=== PATIENT | female | born 1995 | race Native Hawaiian/Other Pacific Islander ===

== ENCOUNTER 2021-11-28 12:16 | Emergency (ER) | payer BC, OTHER ==
[2021-11-28] MEDS ORDERED: XYLOCAINE 1% HCL 20 ML MDV IJ ONE (12:17)
[2021-11-28] MEDS ORDERED: Rocephin 1000 MG INJ IM ONE (12:33)
[2021-11-28] MEDS ORDERED: Zithromax 250 MG TABLET PO ONE (12:34)
[2021-11-28 12:37] VITALS: BP 138/83
[2021-11-28] MEDS ORDERED: Rocephin 1000 MG INJ ONE (12:47)
[2021-11-28] MEDS ORDERED: Zithromax 250 MG TABLET ONE (12:47)
--- NOTE | 2021-11-28 12:55 | ERPHSYRPT ---
- History of Present Illness Time Seen by Provider: 11/28/21 12:51 Source: patient Patient Subjective Stated Complaint: wellness- needs treated for STD Triage Nursing Assessment: Patient ambulated back to ED and transferred self to bed. Patient A+O X3. Patient's skin pink, warm and dry. Patient states she is 12 weeks and received a phone call from Dr. Enriquez stating she is positive for gonnorhea and will need to be treated. Lab shows patient is positive for go nnohea on 11/27/2021. Patient denies any pain or discomfort or vaginal bleeding. Physician History: Patient states she is 12 weeks and received a phone call from Dr. Enriquez stating she is positive for gonnorhea and will need to be treated. Lab shows patient is positive for gonnohea on 11/27/2021. Patient denies any pain or discomfort or vaginal bleeding. Sexual intercourse history: multiple partners, known exposure to STD, unprotected intercourse Modifying Factors: Improves With: nothing Associated Symptoms: denies symptoms Allergies/Adverse Reactions: No Known Drug Allergies Allergy (Unverified 11/28/21 12:28) Home Medications: No Reportable Medications [No Reported Medications] 11/28/21 [History] Hx Influenza Vaccination/Date Given: No Hx Pneumococcal Vaccination/Date Given: No Travel Risk - International Travel Have you traveled outside of the country in past 3 weeks: No - Coronavirus Screening Are you exhibiting any of the following symptoms?: No Close contact with a COVID-19 positive Pt in past 14-21 Days: No - Vaccine Status Have you recieved a Covid-19 vaccination: Yes [employer] Cashier: Unknown - Vaccination Dates Dates if Unknown: na - Review of Systems Constitutional: No Fever, No Chills Eyes: No Symptoms Ears, Nose, & Throat: No Symptoms Respiratory: No Cough, No Dyspnea Cardiac: No Chest Pain, No Edema, No Syncope Abdominal/Gastrointestinal: No Abdominal Pain, No Nausea, No Vomiting, No Diarrhea Genitourinary Symptoms: No Dysuria Musculoskeletal: No Back Pain, No Neck Pain Skin: No Rash Neurological: No Dizziness, No Focal Weakness, No Sensory Changes Psychological: No Symptoms Endocrine: No Symptoms All Other Systems: Reviewed and Negative - Past Medical History Pertinent Past Medical History: No Neurological History: No Pertinent History ENT History: No Pertinent History Cardiac History: No Pertinent History Respiratory History: No Pertinent History Endocrine Medical History: No Pertinent History Musculoskeletal History: No Pertinent History GI Medical History: No Pertinent History History: No Pertinent History Psycho-Social History: No Pertinent History Female Reproductive Disorders: No Pertinent History - Past Surgical History Past Surgical History: No Neuro Surgical History: No Pertinent History Cardiac: No Pertinent History Respiratory: No Pertinent History Gastrointestinal: No Pertinent History Genitourinary: No Pertinent History Musculoskeletal: No Pertinent History Female Surgical History: No Pertinent History - Social History Smoking Status: Current every day smoker How long have you smoked: years Exposure to second hand smoke: Yes Drug Use: none Patient Lives Alone: Yes - Female History Hx Last Menstrual Period: September 26, 2021 Hx Now: Yes Expected Date of Delivery: 06/07/22 - Nursing Vital Signs Nursing Vital Signs: Initial Vital Signs Temperature 97.9 F 11/28/21 12:32 Pulse Rate 101 H 11/28/21 12:32 Respiratory Rate 19 11/28/21 12:32 Blood Pressure 138/83 11/28/21 12:32 O2 Sat by Pulse Oximetry 100 11/28/21 12:32 Pain Scale Pain Intensity 0 - Physical Exam General Appearance: no apparent distress, alert Eye Exam: PERRL/EOMI, eyes nml inspection Ears, Nose, Throat Exam: normal ENT inspection, TMs normal, pharynx normal, moist mucous membranes Neck Exam: normal inspection, non-tender, supple, full range of motion Respiratory Exam: normal breath sounds, lungs clear, No respiratory distress Cardiovascular Exam: regular rate/rhythm, normal heart sounds, normal peripheral pulses Gastrointestinal/Abdomen Exam: soft, No tenderness, No mass Back Exam: normal inspection, normal range of motion, No CVA tenderness, No vertebral tenderness Extremity Exam: normal inspection, normal range of motion, pelvis stable Neurologic Exam: alert, oriented x 3, cooperative, crew boss II-XII nml as tested, normal mood/affect, sensation nml, No motor deficits Skin Exam: normal color, warm, dry Lymphatic Exam: No adenopathy SpO2: 100 - Course Nursing assessment & vital signs reviewed: Yes Ordered Tests: Medication Summary Discontinued Medications Generic Name Dose Route Start Last Admin Trade Name Freq PRN Reason Stop Dose Admin Azithromycin 1,000 mg 11/28/21 12:34 Azithromycin 250 Mg Tablet PO 11/28/21 12:35 STAT ONE Azithromycin Confirm 11/28/21 12:47 Azithromycin 250 Mg Tablet Administered 11/28/21 12:48 Dose 1,000 mg .ROUTE .STK-MED ONE Ceftriaxone Sodium 1,000 mg 11/28/21 12:33 Ceftriaxone Sodium 1000 Mg Inj Vial IM 11/28/21 12:34 STAT ONE Ceftriaxone Sodium Confirm 11/28/21 12:47 Ceftriaxone Sodium 1000 Mg Inj Vial Administered 11/28/21 12:48 Dose 1,000 mg .ROUTE .STK-MED ONE - Progress Progress: unchanged Progress Note: 11/28/21 12:52 Patient is informed about her diagnosis especially positive swab which was done in the office for Neisseria gonorrhea. Patient is informed that we are going to treat her with 1 g of intramuscular Rocephin as well as 1 g of azithromycin by mouth. She is also advised to follow-up with her HEAD CUSTODIAN doctor in next 2 to 3 days. She is also informed about avoid sex for at least next 4 to 6 weeks as well as use protection and onwards. She is also advised about the complication related to this area gonorrhea and early . Patient understood verbalize instructions. Antibiotics given: Yes Counseled pt/family regarding: lab results, diagnosis, need for follow-up - Departure Departure Disposition: Home Clinical Impression: Gonorrhea affecting in first trimester Condition: Stable Critical Care Time: No Critical Care Time(excluding separately billable procedures): Critical 30-74 mins Referrals: TELMA ENRIQUEZ DO [ACTIVE STAFF] - Follow Up with PCP/3 days Instructions: Gonorrhea (DC), Chlamydia and Gonorrhea, Screening for Sexually Transmitted Infections Additional Instructions: Discharge/Care Plan VÍCTOR CASTRO was seen on 11/28/21 in the Emergency Room. The patient was counseled regarding Diagnosis,Lab results, Imaging studies, need for follow up and when to return to the Emergency Room. Prescriptions given: Discharge Note I have spoken with the patient and/or caregivers. I have explained the patient's condition, diagnosis and treatment plan based on the information available to me at this time. I have answered the patient's and/or caregiver's questions and addressed any concerns. The patient and/or caregivers have as good understanding of the patient's diagnosis, condition and treatment plan as can be expected at this point. The vital signs have been stable. The patient's condition is stable and appropriate for discharge from the emergency department. The patient will pursue further outpatient evaluation with the primary care physician or other designated or consulting physician as outlined in the discharge instructions. The patient and/or caregivers are agreeable to this plan of care and follow-up instructions have been explained in detail. The patient and/or caregivers have received these instruction. The patient/and or caregivers are aware that any significant change in condition or worsening of symptoms should prompt an immediate return to this or the closest emergency department or call 911. VÍCTOR CASTRO was seen on 11/28/21 n the Emergency Room. At that time you were treated for an emergent condition, during your visit Laboratory, Radiology and/or other procedures may have been ordered. It is very important that you follow-up with your Primary Care Physician within the next 24-48 hours to review your Emergency Room visit and the final results of testing that was ordered. Some test results such as Urine Cultures, Blood Cultures, and other cultures if ordered will not be finalized for 24-48 hours. If you do not have a Primary Care Provider please call the medical records department at [phone] to obtain a copy of your results or you may sign into our patient portal to obtain these results by visiting us @ [email or web address] and completing the following steps: 1. Click on the Patient Portal link 2. Click the Patient Self Enrollment Link to complete the enrollment form and entering your 3. Once the enrollment form is completed you will receive an email with a temporary ID and password at the email address you provided. 4. Next choose a user name and password. Your user name must be at least 4 characters long and your password must be at least 4 characters long. 5. Choose a security question from the list and provide your answer to the question. If you already have signed into the Health Portal you may access your Health Care Information 28/03 by the following steps: 1. Login to our website @ [email or web address] 2. Enter your original user name and password. FAQS The [facility] Health Portal is an online tool that contains your Lab Results, Radiology Reports, Visit History, Discharge Instructions and Health Summary Lab and Radiology Results will not be available for 72 hours on the portal. The Portal is a secure site, passwords are encryted and URLs are re-written so they cannot be copied and pasted. You and authorized family members are the only ones who can access your Portal. Also there is a timeout feature that protects your information if you leave the Portal page open. If you have technical difficulty please use the Contact Us link on the page this will allow you to submit any questions you have regarding the Portal or you may contact the Medical Record Department at [phone] ext [phone].
[2021-11-28 13:09] VITALS: PULSE 87; O2SAT 98
== END 2021-11-28 13:09 | disposition home or self-care (01) ==
LOC: ED 12:16
DX: O98.211 Gonorrhea complicating pregnancy, first trimester (principal); A54.9 Gonococcal infection, unspecified; Z3A.12 12 weeks gestation of pregnancy; Z72.0 Tobacco use
CPT/HCPCS: 96372; 99283; 99291; J0696; A9270-GY

== ENCOUNTER 2022-02-13 08:07 | Observation (INO) | payer BC, OTHER ==
[2022-02-13 08:57] VITALS: BP 114/66; PULSE 103; O2SAT 100
[2022-02-13 10:33] LABS: Bacteria FEW /HPF (NEGATIVE); Epithelial Cells RARE /HPF (FEW); Mucus MODERATE /HPF (NEGATIVE); WBC >100 /HPF (0-5)
[2022-02-13 10:39] LABS: Appearance CLEAR (CLEAR); Bilirubin NEGATIVE (NEGATIVE); Glucose 250 mg/dL (NEGATIVE); Ketones NEGATIVE (NEGATIVE); RBC TRACE-INTACT Ery/ul (0-5); Specific Gravity 1.025 (1.005-1.025)
[2022-02-13 10:40] LABS: Nitrite NEGATIVE (NEGATIVE); Protein,Urine Dip 100 (Negative); Urine Cultured Indicated? YES; Urobilinogen 1 mg/dL (0-1)
[2022-02-13 10:43] LABS: Dipstick done @ ? MAIN LAB
[2022-02-13 10:46] LABS: Barbiturate,Urine NEGATIVE (NEGATIVE); Benzodiazepine,Urine NEGATIVE (NEGATIVE); Cocaine,Urine NEGATIVE (NEGATIVE); Methadone,Urine NEGATIVE (NEGATIVE); Opiate,Urine NEGATIVE (NEGATIVE); PCP,Urine NEGATIVE (NEGATIVE); THC,Urine NEGATIVE (NEGATIVE)
[2022-02-13] MEDS ORDERED: Lactated Ringers 1,000 ML IV ONE (10:52)
[2022-02-13] MEDS ORDERED: ROCEPHIN 2 Gm-D5w 50ML BAG** 2 G/50 ML IVPB IV SCH (11:00)
[2022-02-13] MEDS ORDERED: Celestone Soluspan 6MG/ML IM ONE (11:16)
[2022-02-13] MEDS ORDERED: Lactated Ringers 1,000 ML IV SCH (11:30)
[2022-02-13] MEDS ORDERED: Magnesium Sulfate 40 Gm/1000 Ml H2O Premix*** 1,000 ML IV SCH (11:30)
[2022-02-13 11:39] LABS: Hematocrit 34.4 % (35-47); Hemoglobin 11.4 g/dL (12.0-16.0); Mean Cell Volume 85.6 fL (78-100); Mean Corpuscular Hemoglobin 28.4 pg (26-32); Mean Corpuscular Hgb Concent. 33.1 g/dL (32-36); Mean Platelet Volume 10.2 fL (7.5-11.0); Platelet Count 255 x10^3/uL (150-450); Red Blood Count 4.02 x10^6/uL (4.1-5.4); White Blood Count 24.2 x10^3/uL (4.0-10.5)
[2022-02-13 11:49] LABS: ALBUMIN 3.4 g/dL (3.5-5.0); ALKALINE PHOSPHATASE 115 U/L (38-126); ANION GAP 12.7 MEQ/L (5-15); BLOOD UREA NITROGEN 7 mg/dL (7-17); CHLORIDE 104 mmol/L (98-107); Calcium 8.6 mg/dL (8.4-10.2); Carbon Dioxide 20 mmol/L (22-30); Creatinine 1 0.39 mg/dL (0.52-1.04); EST GLOMERULAR FILTRATION RATE > 60.0 ML/MIN; Glucose 109 mg/dL (74-106); Potassium 3.8 mmol/L (3.5-5.1); SGOT/AST 17 U/L (14-36); SGPT/ALT 14 U/L (0-35); SODIUM 133 mmol/L (137-145)
[2022-02-13 12:02] LABS: INR 0.97 (0.8-3.0); PROTIME 10.3 SECONDS (9.4-12.5); PTT 25.9 SECONDS (25.1-36.5)
[2022-02-13 12:08] LABS: Amphetamine,Urine POSITIVE (NEGATIVE)
[2022-02-13 14:26] LABS: CHLAMYDIA DNA NOT DETECTED (NEGATIVE); GC DNA Probe NOT DETECTED (NEGATIVE)
== END 2022-02-13 11:44 | disposition home or self-care (01) ==
LOC: OB 08:07
PROVIDERS: ADMIT Obstetrics & Gynecology; ATTEND Obstetrics & Gynecology
DX: Z34.02 Encounter for supervision of normal first pregnancy, second trimester (principal); Z3A.24 24 weeks gestation of pregnancy
CPT/HCPCS: 36415; 80053; 80307; 81015; 83735; 85027; 85610; 85730; 87086; 87491; 87591; G0378; J0696; J0702

== ENCOUNTER 2022-08-28 18:19 | Emergency (ER) | payer BC, OTHER ==
[2022-08-28 18:33] VITALS: BP 113/91; O2SAT 100
[2022-08-28] MEDS ORDERED: Sodium Chloride 0.9% 1000 ML 1,000 ML IV STA (18:56)
[2022-08-28 19:10] LABS: Absolute Neutrophil Ct (ANC) 5.98 x10^3/uL (1.4-6.9); Basophil (Absolute #) 0.04 x10^3/uL (0-0.4); Eosinophil % 2.9 % (0.00-5.0); Eosinophil (Absolute #) 0.25 x10^3/uL (0-0.5); Hematocrit 37.7 % (35-47); Hemoglobin 11.9 g/dL (12.0-16.0); Lymphocyte (Absolute #) 1.94 x10^3/uL (1.0-4.6); Lymphocytes % 22.2 % (24.0-44.0); Mean Cell Volume 82.1 fL (78-100); Mean Corpuscular Hemoglobin 25.9 pg (26-32); Mean Corpuscular Hgb Concent. 31.6 g/dL (32-36); Monocyte (Absolute #) 0.49 x10^3/uL (0.0-1.3); Monocytes % 5.6 % (0.0-12.0); Neutrophil % 68.5 % (36.0-66.0); Platelet Count 378 x10^3/uL (150-450); Red Blood Count 4.59 x10^6/uL (4.1-5.4); White Blood Count 8.7 x10^3/uL (4.0-10.5)
[2022-08-28] MEDS ORDERED: Sodium Chloride 0.9% 1000 ML 1,000 ML ONE (19:10)
[2022-08-28] MEDS ORDERED: BABY ASPIRIN 81 MG CHEW PO ONE (19:11)
[2022-08-28 19:27] LABS: ALBUMIN 4.3 g/dL (3.5-5.0); ALKALINE PHOSPHATASE 75 U/L (38-126); ANION GAP 11.4 MEQ/L (5-15); BLOOD UREA NITROGEN 17 mg/dL (7-17); CHLORIDE 106 mmol/L (98-107); CK-Creatinine Phosphokinase 73 U/L (30-135); Calcium 9.4 mg/dL (8.4-10.2); Carbon Dioxide 24 mmol/L (22-30); Creatinine 1 0.62 mg/dL (0.52-1.04); EST GLOMERULAR FILTRATION RATE > 60.0 ML/MIN; Glucose 80 mg/dL (74-106); Potassium 3.2 mmol/L (3.5-5.1); SGOT/AST 20 U/L (14-36); SGPT/ALT 16 U/L (0-35); SODIUM 138 mmol/L (137-145); Total Protein 7.3 g/dL (6.3-8.2)
--- NOTE | 2022-08-28 19:47 | ERPHSYRPT ---
- History of Present Illness Time Seen by Provider: 08/28/22 18:23 Historian: patient Exam Limitations: no limitations Patient Subjective Stated Complaint: C/O anxiety. Patient states that she has done several lines of meth today and is now very anxious and "tingling." Denies IV drug use. Triage Nursing Assessment: Patient brought into the ED by ambulance. She is anxious; has trouble sitting still. Legs moving about in the bed. She is alert and oriented. Patient is focusing on her breathing; taking deep, regular, breaths. Cooperative with staff. Physician History: 27 years old female with history of anxiety/panic attacks, drug abuse presented in the ER with chief complaint of anxiety attack/chest pain after she used multiple lines of methamphetamine since morning. Patient reports the last 1 she used was not looking right. She got anxious and having chest pain with palpitations but no shortness of breath. Does reporting occasional alcohol and marijuana as well. Denies any IV drug use. Timing/Duration: hour(s) (4), sudden, worse Activities at Onset: other Quality: sharpness Location: substernal Chest Pain Radiation: no radiation Severity of Pain-Max: moderate Severity of Pain-Current: mild Modifying Factors: Improves With: nothing Associated Symptoms: denies symptoms Prior Chest Pain/Cardiac Workup: no prior cardiac workup Nitro Today/Relief: no nitro taken today Aspirin Treatment Today: no aspirin today Allergies/Adverse Reactions: No Known Drug Allergies Allergy (Verified 08/28/22 18:20) Home Medications: No Reportable Medications [No Reported Medications] 08/28/22 [History] Hx Tetanus, Diphtheria Vaccination/Date Given: Yes Hx Influenza Vaccination/Date Given: No Hx Pneumococcal Vaccination/Date Given: No Immunizations Up to Date: Yes Travel Risk - International Travel Have you traveled outside of the country in past 3 weeks: No - Coronavirus Screening Are you exhibiting any of the following symptoms?: No Close contact with a COVID-19 positive Pt in past 14-21 Days: No - Vaccine Status Have you recieved a Covid-19 vaccination: Yes Body Line 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 - Vaccination Dates Date of 2cond Vaccination (if applicable): 01/04/2020 - Review of Systems Constitutional: No Symptoms Eyes: No Symptoms Ears, Nose, & Throat: No Symptoms Respiratory: No Symptoms Cardiac: Chest Pain, Palpitations Abdominal/Gastrointestinal: No Symptoms Genitourinary Symptoms: No Symptoms Musculoskeletal: No Symptoms Skin: No Symptoms Neurological: No Symptoms Psychological: Alcohol Abuse, Drug Abuse, Anxiety Endocrine: No Symptoms Hematologic/Lymphatic: No Symptoms Immunological/Allergic: No Symptoms - Past Medical History Pertinent Past Medical History: Yes Neurological History: No Pertinent History ENT History: No Pertinent History Cardiac History: No Pertinent History Respiratory History: No Pertinent History Endocrine Medical History: No Pertinent History Musculoskeletal History: No Pertinent History GI Medical History: No Pertinent History History: No Pertinent History Psycho-Social History: Anxiety, Depression Female Reproductive Disorders: No Pertinent History - Past Surgical History Past Surgical History: No Neuro Surgical History: No Pertinent History Cardiac: No Pertinent History Respiratory: No Pertinent History Gastrointestinal: No Pertinent History Genitourinary: No Pertinent History Musculoskeletal: No Pertinent History Female Surgical History: No Pertinent History - Social History Smoking Status: Current every day smoker How long have you smoked: 2 yrs Exposure to second hand smoke: Yes Drug Use: marijuana, methamphetamines Patient Lives Alone: Yes - Female History Hx Last Menstrual Period: NOW Hx Now: (unkn) - Nursing Vital Signs Nursing Vital Signs: Initial Vital Signs Temperature 97.8 F 08/28/22 18:20 Pulse Rate 104 H 08/28/22 18:20 Respiratory Rate 18 08/28/22 18:20 Blood Pressure 113/91 08/28/22 18:20 O2 Sat by Pulse Oximetry 100 08/28/22 18:20 Pain Scale Pain Intensity 0 - Physical Exam General Appearance: no apparent distress, alert, anxiety Eye Exam: PERRL/EOMI, eyes nml inspection Ears, Nose, Throat Exam: normal ENT inspection, TMs normal, pharynx normal, moist mucous membranes Neck Exam: normal inspection, non-tender, supple, full range of motion Respiratory Exam: normal breath sounds, lungs clear Cardiovascular Exam: regular rate/rhythm, normal heart sounds Gastrointestinal/Abdomen Exam: soft, normal bowel sounds, No tenderness Back Exam: normal inspection, normal range of motion Extremity Exam: normal inspection, normal range of motion Neurologic Exam: alert, oriented x 3, cooperative, business development consultant II-XII nml as tested (Chest), sensation nml, No normal mood/affect Skin Exam: normal color SpO2 Interpretation: normal SpO2: 100 O2 Delivery: Room Air - Course EKG Interpreted by Me: RATE ([id number]), Sinus Tach, NORMAL AXIS, Q-wave, Non-specific ST Changes Ordered Tests: Active Orders 24 hr Category Date Time Status Cut Off Man STAT Care 08/28/22 18:57 Active EKG-ER Only STAT Care 08/28/22 18:56 Active IV Insertion STAT Care 08/28/22 18:56 Active CHEST 1 VIEW (PORTABLE) Stat Exams 08/28/22 18:56 Completed CBC W DIFF Stat Lab 08/28/22 19:06 Completed CK-Creatinine Phosphokinase Stat Lab 08/28/22 19:06 Results CMP Stat Lab 08/28/22 19:06 Results HCG QUALITATIVE,SERUM Stat Lab 08/28/22 19:30 Completed NT PRO BNP Stat Lab 08/28/22 19:06 Results TROPONIN Q4H Lab 08/28/22 23:00 Ordered TROPONIN Q4H Lab 08/29/22 03:00 Ordered Urine Triage Profile Stat Lab 08/28/22 18:56 Ordered Medication Summary Discontinued Medications Generic Name Dose Route Start Last Admin Trade Name Freq PRN Reason Stop Dose Admin Aspirin 324 mg 08/28/22 19:11 08/28/22 19:12 Aspirin 81 Mg Tab.Chew PO 08/28/22 19:12 324 mg STAT ONE Administration Sodium Chloride 1,000 mls @ 999 mls/hr 08/28/22 18:56 08/28/22 20:39 Sodium Chloride 0.9% 1000 Ml IV 08/28/22 19:56 Infused .Q1H1M STA Infusion Sodium Chloride Confirm 08/28/22 19:10 Sodium Chloride 0.9% 1000 Ml Administered 08/28/22 19:11 Dose 1,000 mls @ ud .ROUTE .STK-MED ONE Potassium Chloride 40 meq 08/28/22 21:24 08/28/22 21:29 Potassium Chloride Tab 10 Meq Tab PO 08/28/22 21:25 40 meq STAT ONE Administration Potassium Chloride Confirm 08/28/22 21:29 Potassium Chloride Tab 10 Meq Tab Administered 08/28/22 21:30 Dose 40 meq PO .STK-MED ONE Lab/Rad Data: Laboratory Result Diagrams 08/28/22 19:06 08/28/22 19:06 Laboratory Results 08/28/22 08/28/22 08/28/22 Range/Units 19:30 19:06 19:06 WBC (4.0-10.5) x10^3/uL RBC (4.1-5.4) x10^6/uL Hgb (12.0-16.0) g/dL Hct (35-47) % MCV (78-100) fL MCH (26-32) pg MCHC (32-36) g/dL RDW (11.5-14.0) % Plt Count (150-450) x10^3/uL MPV (7.5-11.0) fL Gran % (36.0-66.0) % Immature Gran % (Auto) (0.00-0.4) % Nucleat RBC Rel Count (0.00-0.1) % Eos # (Auto) (0-0.5) x10^3/uL Immature Gran # (Auto) (0.00-0.03) x10^3u/L Absolute Lymphs (auto) (1.0-4.6) x10^3/uL Absolute Monos (auto) (0.0-1.3) x10^3/uL Absolute Nucleated RBC (0.00-0.01) x10^3u/L Lymphocytes % (24.0-44.0) % Monocytes % (0.0-12.0) % Eosinophils % (0.00-5.0) % Basophils % (0.0-0.4) % Absolute Granulocytes (1.4-6.9) x10^3/uL Basophils # (0-0.4) x10^3/uL Sodium 138 (137-145) mmol/L Potassium 3.2 L (3.5-5.1) mmol/L Chloride 106 (98-107) mmol/L Carbon Dioxide 24 (22-30) mmol/L Anion Gap 11.4 (5-15) MEQ/L BUN 17 (7-17) mg/dL Creatinine 0.62 (0.52-1.04) mg/dL Estimated GFR > 60.0 ML/MIN Glucose 80 (74-106) mg/dL Calcium 9.4 (8.4-10.2) mg/dL Total Bilirubin 0.50 (0.2-1.3) mg/dL AST 20 (14-36) U/L ALT 16 (0-35) U/L Alkaline Phosphatase 75 (38-126) U/L Creatine Kinase 73 (30-135) U/L Troponin 0.00 (0.00-0.03) ng/mL NT-Pro-B Natriuret Pep Pending Serum Total Protein 7.3 (6.3-8.2) g/dL Albumin 4.3 (3.5-5.0) g/dL Serum , Qual NEGATIVE (Negative) 08/28/22 Range/Units 19:06 WBC 8.7 (4.0-10.5) x10^3/uL RBC 4.59 (4.1-5.4) x10^6/uL Hgb 11.9 L (12.0-16.0) g/dL Hct 37.7 (35-47) % MCV 82.1 (78-100) fL MCH 25.9 L (26-32) pg MCHC 31.6 L (32-36) g/dL RDW 14.0 (11.5-14.0) % Plt Count 378 (150-450) x10^3/uL MPV 10.0 (7.5-11.0) fL Gran % 68.5 H (36.0-66.0) % Immature Gran % (Auto) 0.3 (0.00-0.4) % Nucleat RBC Rel Count 0.0 (0.00-0.1) % Eos # (Auto) 0.25 (0-0.5) x10^3/uL Immature Gran # (Auto) 0.03 (0.00-0.03) x10^3u/L Absolute Lymphs (auto) 1.94 (1.0-4.6) x10^3/uL Absolute Monos (auto) 0.49 (0.0-1.3) x10^3/uL Absolute Nucleated RBC 0.00 (0.00-0.01) x10^3u/L Lymphocytes % 22.2 L (24.0-44.0) % Monocytes % 5.6 (0.0-12.0) % Eosinophils % 2.9 (0.00-5.0) % Basophils % 0.5 (0.0-0.4) % Absolute Granulocytes 5.98 (1.4-6.9) x10^3/uL Basophils # 0.04 (0-0.4) x10^3/uL Sodium (137-145) mmol/L Potassium (3.5-5.1) mmol/L Chloride (98-107) mmol/L Carbon Dioxide (22-30) mmol/L Anion Gap (5-15) MEQ/L BUN (7-17) mg/dL Creatinine (0.52-1.04) mg/dL Estimated GFR ML/MIN Glucose (74-106) mg/dL Calcium (8.4-10.2) mg/dL Total Bilirubin (0.2-1.3) mg/dL AST (14-36) U/L ALT (0-35) U/L Alkaline Phosphatase (38-126) U/L Creatine Kinase (30-135) U/L Troponin (0.00-0.03) ng/mL NT-Pro-B Natriuret Pep Serum Total Protein (6.3-8.2) g/dL Albumin (3.5-5.0) g/dL Serum , Qual (Negative) - Progress Progress: improved Air Movement: good Progress Note: 08/28/22 22:12 7 years old is evaluated for chest pain. She has used methamphetamine multiple times today. Patient is mildly tachycardic on presentation, given fluids. Given aspirin her chest pain is better. She is ambulating in the ER without any limitation. EKG showed sinus tach with no ST elevation and has negative troponin. Chest x-ray negative for any acute cardiopulmonary findings. Mildly low potassium and was given oral potassium. Patient is counseled about substance abuse. Part of her symptoms are secondary to anxiety as well. She is counseled about substance abuse. Outpatient follow-up recommended. Blood Culture(s) Obtained: No Antibiotics given: No Counseled pt/family regarding: drug and/or alcohol abuse, lab results, diagnosis, need for follow-up, rad results, smoking cessation - Departure Departure Disposition: Home Clinical Impression: Substance abuse, Atypical chest pain, Anxiety Condition: Stable Critical Care Time: No Referrals: DOCTOR,NO FAMILY [Primary Care Provider] - Follow up/PCP as directed YFN RODRIGUEZ MD [ACTIVE STAFF] - Follow up/PCP as directed (In 2 days for reevaluation.) Instructions: Anxiety, Adult (DC), Chest Pain (DC) Additional Instructions: Do not smoke. No substance abuse. Follow-up with primary care for reevaluation. Return to ER for worsening chest pain, anxiety etc.
[2022-08-28 21:05] VITALS: PULSE 98
[2022-08-28] MEDS ORDERED: Klor Con PO ONE ×2 (21:24→21:29)
--- NOTE | 2022-08-28 21:48 | XRAY ---
Indication: Chest pain. Anxiety. Comparison: None Portable chest demonstrates normal heart, lungs, and bony thorax.
== END 2022-08-28 22:58 | disposition home or self-care (01) ==
LOC: ED 18:19
DX: F15.10 Other stimulant abuse, uncomplicated (principal); R07.89 Other chest pain; F41.9 Anxiety disorder, unspecified; R00.2 Palpitations; Z72.0 Tobacco use
CPT/HCPCS: 36000; 36415; 71045; 80053; 82550; 83880; 84484; 84703; 85025; 93005; 93041; 99284; A9270-GY

== ENCOUNTER 2022-11-06 04:24 | Emergency (ER) | payer OTHER ==
[2022-11-06 04:32] VITALS: O2SAT 100
--- NOTE | 2022-11-06 05:15 | ERPHSYRPT ---
- History of Present Illness Source: patient, police Exam Limitations: other (Pt refuses lab work) Patient Subjective Stated Complaint: pt states "My boyfriend is getting put off life support today at 2 pm. I have been drinking all day since about noon. I cut my arm with a razor to take the stress away." Triage Nursing Assessment: pt presents to ED via [facility], pt alert and oriented x3, pt has etoh on board, pt states she has been drinking since noon yesterday, pt has been drinking whiskey, vodka, fireball. pt's boyfriend is being taken off life support today at 2 pm, pt has superficial cuts on L forearm from razor, bleeding controlled, denies suicidal ideations, homicidal ideations, or any plans, pt hx of meth use and marijuana use but has not used for 2 weeks Physician History: 27 yo wf brought into ER by ambulance/police after sending picture to her friend "dorcas" of superficial cut cooney on her L ventral forearm. Pt denies suicidal/homicidal ideation. She has been drinking but is alert and oriented x3 w a great airway. Pt states that she is somewhat depressed due to her boyfriend "John' being on a ventilator secondary to a "stroke". Pt refuses to consent to blood draw and give urine. Timing/Duration: today Severity of Symptoms-Max: mild Severity of Symptoms-Current: mild Context related to: significant other Associated Symptoms: depressed Previous symptoms: no prior history Allergies/Adverse Reactions: No Known Drug Allergies Allergy (Verified 11/06/22 04:28) Home Medications: No Reportable Medications [No Reported Medications] 08/28/22 [History] Hx Tetanus, Diphtheria Vaccination/Date Given: Yes Hx Influenza Vaccination/Date Given: No Hx Pneumococcal Vaccination/Date Given: No Travel Risk - International Travel Have you traveled outside of the country in past 3 weeks: No - Coronavirus Screening Are you exhibiting any of the following symptoms?: No Close contact with a COVID-19 positive Pt in past 14-21 Days: No - Vaccine Status Have you recieved a Covid-19 vaccination: Yes Patch Setter: Moderna - Vaccination Dates Date of 2cond Vaccination (if applicable): 01/04/2020 - Past Medical History Pertinent Past Medical History: Yes Neurological History: No Pertinent History ENT History: No Pertinent History Cardiac History: No Pertinent History Respiratory History: No Pertinent History Endocrine Medical History: No Pertinent History Musculoskeletal History: No Pertinent History GI Medical History: No Pertinent History History: No Pertinent History Psycho-Social History: Anxiety, Depression Female Reproductive Disorders: No Pertinent History - Past Surgical History Past Surgical History: Yes Neuro Surgical History: No Pertinent History Cardiac: No Pertinent History Respiratory: No Pertinent History Gastrointestinal: No Pertinent History Genitourinary: No Pertinent History Musculoskeletal: No Pertinent History Female Surgical History: No Pertinent History Other Surgical History: wisdom teeth - Social History Smoking Status: Current every day smoker How long have you smoked: 2 yrs Exposure to second hand smoke: Yes Drug Use: marijuana, methamphetamines Patient Lives Alone: Yes - Female History Hx Last Menstrual Period: 10/09/22 Hx Now: No - Review of Systems Constitutional: No Symptoms Eyes: No Symptoms Ears, Nose, & Throat: No Symptoms Respiratory: No Symptoms Cardiac: No Symptoms Abdominal/Gastrointestinal: No Symptoms Genitourinary Symptoms: No Symptoms Musculoskeletal: No Symptoms Skin: No Symptoms Neurological: No Symptoms Endocrine: No Symptoms Hematologic/Lymphatic: No Symptoms Immunological/Allergic: No Symptoms - Nursing Vital Signs Nursing Vital Signs: Initial Vital Signs Temperature 97.4 F 11/06/22 04:29 Pulse Rate 129 H 11/06/22 04:29 Respiratory Rate 18 11/06/22 04:29 Blood Pressure 130/89 11/06/22 04:29 O2 Sat by Pulse Oximetry 100 11/06/22 04:29 Pain Scale Pain Intensity 0 Tachy/borderline hypertension - Physical Exam General Appearance: no apparent distress Eyes, Ears, Nose, Throat Exam: normal ENT inspection, TMs normal, pharynx normal, moist mucous membranes Neck Exam: normal inspection, non-tender, supple, No Brudzinski, No Kernig's, No meningismus Respiratory Exam: normal breath sounds, lungs clear, airway intact Cardiovascular Exam: tachycardia, capillary refill <2 sec, No murmur Gastrointestinal/Abdominal Exam: soft, normal bowel sounds, No tenderness Extremities Exam: normal range of motion, evidence of injury (Superficial cut cooney L ventral forearm) Current Suicidality: denies suicide plan Neurological Exam: alert, marketing automation manager II-XII nml as tested, oriented x 3 Appearance: appropriate appearance Behavior/Eye Contact/Speech: good eye contact, intoxicated appearance Skin Exam: normal color, warm, dry SpO2 Interpretation: normal SpO2: 100 O2 Delivery: Room Air - Course Nursing assessment & vital signs reviewed: Yes EKG Interpreted by Me: RATE (Sinus tach/Rate 123/Normal QT-Qtc/Normal T waves/No acute ST segment changes) Ordered Tests: Active Orders 24 hr Category Date Time Status EKG-ER Only STAT Care 11/06/22 04:48 Active ACETAMINOPHEN Stat Lab 11/06/22 04:46 Ordered CBC W DIFF Stat Lab 11/06/22 04:46 Ordered CMP Stat Lab 11/06/22 04:46 Ordered ETHYL ALCOHOL Stat Lab 11/06/22 04:46 Ordered HCG QUALITATIVE,SERUM Stat Lab 11/06/22 Ordered SALICYLATE Stat Lab 11/06/22 04:46 Ordered Urine Triage Profile Stat Lab 11/06/22 04:47 Ordered - Progress Progress: improved Progress Note: 11/06/22 06:14 Nursing note and vital signs reviewed Pt denied suicidal/homicidal ideation during entire stay Pt's parents arrived to ER and talked w pt. They believe that pt is not suicidal or homicidal and are willing to take pt home. She is a pt of the [facility] and will follow up with them on Tuesday. Pt refused blood draw and to give urine specimen, so [facility] refused to consult on pt. She had a great airway and was alert and oriented x3 during entire stay. Pt discharged in care of mother/Father. 11/06/22 06:21 Counseled pt/family regarding: diagnosis, need for follow-up Medical Desision Making - Independent Historian Additional History obtained from: Mother, Father - Departure Departure Disposition: Home Clinical Impression: Intoxication, Depression Condition: Stable Critical Care Time: No Referrals: DOCTOR,NO FAMILY [NON-STAFF PHY W/O PRIVILEGES] - Follow up/PCP as directed Instructions: Depression, Adult (DC), Alcohol Use Disorder (DC) Additional Instructions: Follow up with the [facility] on Tuesday
[2022-11-06 06:24] VITALS: BP 122/74; PULSE 108
== END 2022-11-06 06:23 | disposition home or self-care (01) ==
LOC: ED 04:24
DX: F32.A Depression, unspecified (principal); F10.129 Alcohol abuse with intoxication, unspecified; Z63.79 Other stressful life events affecting family and household; Z72.0 Tobacco use
CPT/HCPCS: 93005; 99283

== ENCOUNTER 2023-09-21 22:02 | Inpatient (IN) | payer SELFPAY ==
[2023-09-21] MEDS ORDERED: XYLOCAINE 1% HCL 20 ML MDV IJ PRN (22:53)
[2023-09-21] MEDS ORDERED: OMNIPEN 2 GM*** 2 G in Sodium Chloride 100ML MINI-BAG PLUS 100 ML IV ONE (22:53)
[2023-09-21] MEDS ORDERED: Zofran 4 MG/2 ML VIAL IV PRN (22:53)
[2023-09-21] MEDS ORDERED: Ephedrine Sulfate 50 MG/ML IV PRN (22:59)
[2023-09-21] MEDS ORDERED: Lactated Ringers 1,000 ML IV ONE (22:59)
[2023-09-21] MEDS ORDERED: Lactated Ringers 1,000 ML IV SCH (23:00)
[2023-09-21] MEDS ORDERED: FENTANYL 2 MCG-BUPIV 0.125%-NS 250 ML Epidur 250 ML EPIDURAL SCH (23:00)
[2023-09-21 23:06] LABS: Amphetamine,Urine NEGATIVE (NEGATIVE); Barbiturate,Urine NEGATIVE (NEGATIVE); Benzodiazepine,Urine NEGATIVE (NEGATIVE); Cocaine,Urine NEGATIVE (NEGATIVE); Methadone,Urine NEGATIVE (NEGATIVE); Opiate,Urine NEGATIVE (NEGATIVE); PCP,Urine NEGATIVE (NEGATIVE); THC,Urine NEGATIVE (NEGATIVE)
[2023-09-21 23:06] LABS: Absolute Neutrophil Ct (ANC) 15.64 x10^3/uL (1.4-6.9); BASOPHIL % 0.3 % (0.0-0.4); Basophil (Absolute #) 0.05 x10^3/uL (0-0.4); Eosinophil % 2.1 % (0.00-5.0); Eosinophil (Absolute #) 0.39 x10^3/uL (0-0.5); Hematocrit 35.4 % (35-47); Hemoglobin 11.5 g/dL (12.0-16.0); IMMATURE GRAN # 0.09 x10^3u/L (0.00-0.03); IMMATURE GRAN % 0.5 % (0.00-0.4); Lymphocyte (Absolute #) 1.64 x10^3/uL (1.0-4.6); Lymphocytes % 8.7 % (24.0-44.0); Mean Cell Volume 85.3 fL (78-100); Mean Corpuscular Hemoglobin 27.7 pg (26-32); Mean Corpuscular Hgb Concent. 32.5 g/dL (32-36); Mean Platelet Volume 10.1 fL (7.5-11.0); Monocyte (Absolute #) 0.94 x10^3/uL (0.0-1.3); Neutrophil % 83.4 % (36.0-66.0); Platelet Count 267 x10^3/uL (150-450); Red Blood Count 4.15 x10^6/uL (4.1-5.4); Red Cell Distribution Width 13.4 % (11.5-14.0); White Blood Count 18.8 x10^3/uL (4.0-10.5)
[2023-09-21] MEDS ORDERED: OMNIPEN 2 GM ONE (23:11)
[2023-09-21] MEDS ORDERED: Sodium Chloride 100ML MINI-BAG PLUS 100 ML IV ONE (23:11)
[2023-09-21] MEDS ORDERED: PITOCIN 30 UNITS/ LR 500 ML 500 ML IV ONE (23:17)
[2023-09-21 23:23] LABS: ADD URINE CULTURE? YES (NO); Appearance Turbid (Clear); Bacteria None Seen /HPF (None Seen); Bilirubin Negative (Negative); Blood Large (Negative); Epithelial Cells Few /HPF (None Seen); Glucose, Urine Negative (Negative); Hyaline Casts NONE SEEN /LPF (0-2); Ketones Negative (Negative); Leukocyte Esterase Moderate (Negative); Nitrite Negative (Negative); Ph 6.5 (4.6-8.0); Protein,Urine Dip Negative (Negative); RBC >100 /HPF (0-5); WBC 51-100 /HPF (0-5)
[2023-09-21 23:24] LABS: AMNISURE TEST RESULTS NEGATIVE (NEGATIVE)
[2023-09-21] MEDS ORDERED: XYLOCAINE 2%/Epi 1:200000 20ML VIAL MPF ONE (23:25)
[2023-09-21] MEDS ORDERED: PITOCIN 30 UNITS/ LR 500 ML 30 UNITS/500 ML PLAST..BAG IV SCH (23:45)
[2023-09-21 23:52] LABS: ABO TYPING A; Antibody Screen NEGATIVE (NEGATIVE); RH TYPING POSITIVE
[2023-09-22] MEDS ORDERED: Dermoplast Spray TP PRN (00:06)
[2023-09-22] MEDS ORDERED: Dulcolax 10 MG SUPP PR PRN (00:06)
[2023-09-22] MEDS ORDERED: TUCKS TP PRN (00:06)
[2023-09-22] MEDS ORDERED: TYLENOL EXTRA STRENGTH 500 MG PO PRN (00:06)
[2023-09-22] MEDS ORDERED: MOTRIN 400 MG PO PRN (00:06)
[2023-09-22] MEDS ORDERED: LANSINOH 40 GM TOP PRN (00:06)
[2023-09-22 05:26] LABS: Absolute Neutrophil Ct (ANC) 18.63 x10^3/uL (1.4-6.9); BASOPHIL % 0.2 % (0.0-0.4); Basophil (Absolute #) 0.05 x10^3/uL (0-0.4); Eosinophil % 0.2 % (0.00-5.0); Eosinophil (Absolute #) 0.05 x10^3/uL (0-0.5); Hematocrit 33.8 % (35-47); Hemoglobin 10.9 g/dL (12.0-16.0); IMMATURE GRAN # 0.12 x10^3u/L (0.00-0.03); IMMATURE GRAN % 0.6 % (0.00-0.4); Lymphocytes % 5.3 % (24.0-44.0); Mean Cell Volume 85.6 fL (78-100); Mean Corpuscular Hemoglobin 27.6 pg (26-32); Mean Corpuscular Hgb Concent. 32.2 g/dL (32-36); Mean Platelet Volume 10.2 fL (7.5-11.0); Monocyte (Absolute #) 0.78 x10^3/uL (0.0-1.3); Monocytes % 3.8 % (0.0-12.0); Neutrophil % 89.9 % (36.0-66.0); Platelet Count 245 x10^3/uL (150-450); Red Blood Count 3.95 x10^6/uL (4.1-5.4); Red Cell Distribution Width 13.5 % (11.5-14.0); White Blood Count 20.7 x10^3/uL (4.0-10.5)
[2023-09-22] MEDS: Docusate Sodium 100 MG PO SCH ×2 (10:21→20:07)
[2023-09-22] MEDS: FERREX 150 PO SCH (10:21)
[2023-09-23] MEDS: FERREX 150 PO SCH (09:13)
[2023-09-23] MEDS: Docusate Sodium 100 MG PO SCH (09:13)
[2023-09-23 09:18] VITALS: O2SAT 98
--- NOTE | 2023-09-23 09:23 | PCM.DS ---
Discharge Summary Date of Admission: 09/21/23 22:22 Admitting Physician: CAITLYN BUSBY Consults: Consults on Case 09/22/23 02:06 Navigation ONCE 09/22/23 11:56 Navigation ONCE Primary Care Provider: ELY GREENE Allergies Allergies No Known Drug Allergies Allergy (Verified 09/21/23 22:53) Hospital Summary - Hospital Course Hospital Course: patient arrived in spontaneous labor and had an uncomplicated vaginal delivery with a second degree perineal laceration repair. breast and bottle feeding, mild lochia and denies pain . she is ambulatory and eating a normal diet, doing well. history of alcohol and substance abuse early in but no use in last half of or so, drug screen was negative in labor. she seems to be doing well and is well bonded with her baby girl [place]. - Vitals & Intake/Output Vital Signs: Vital Signs Temperature 97.5 F 09/23/23 08:00 Pulse Rate 94 H 09/23/23 08:00 Respiratory Rate 18 09/23/23 08:00 Blood Pressure 124/69 09/23/23 08:00 O2 Sat by Pulse Oximetry 98 09/23/23 08:00 Intake & Output: Intake & Output 09/20/23 09/21/23 09/22/23 09/23/23 11:59 11:59 11:59 11:59 Intake Total 2099 1940 Balance 2099 1939 Weight 240 kg - Lab Result Diagrams: 09/22/23 04:26 Micro Results-Entire Visit: Microbiology 09/21/23 22:40 Urine Culture - Final Clean Catch Midstream <10K NORMAL SKIN KERRI PROBABLE SKIN CONTAMINANT - Procedures and Test Procedures and Tests throughout Hospitalization: Therapy Orders & Screens 09/21/23 23:20 Standby STAT Comment: Diagnosis: labor 09/22/23 10:54 Smoking Cessation Education ONCE Comment: Diagnosis: labor Smoking Status: Current every day smoker How long have you smoked: 4 Have you smoked in the past 12 months: Yes Approximately how many cigarettes per day: 2 Do you dip or chew tobacco: No Discharge Exam General Appearance: no apparent distress, obese Neurologic Exam: alert, oriented x 3 Respiratory Exam: normal breath sounds, lungs clear, No respiratory distress Cardiovascular Exam: regular rate/rhythm, normal heart sounds Gastrointestinal/Abdomen Exam: soft, No tenderness, No mass Extremity Exam: normal inspection, normal range of motion Skin Exam: normal color, warm, dry Final Diagnosis/Problem List - Final Discharge Diagnosis/Problem (1) Vaginal delivery Current Visit: Yes Status: Acute Code(s): O80 - ENCOUNTER FOR FULL-TERM UNCOMPLICATED DELIVERY (2) Second degree perineal laceration Current Visit: Yes Status: Acute Code(s): O70.1 - SECOND DEGREE PERINEAL LACERATION DURING DELIVERY - Discharge Disposition: Home, Self-Care Condition: Stable Prescriptions: Continue No122/Iron/Folic Acid [ Multi Tablet] 1 tab PO DAILY Instructions: Pumping and storing breast milk, How to Prepare Baby Formula Follow up with: CAITLYN BUSBY MD [ACTIVE STAFF] - 6 weeks
[2023-09-23] MEDS ORDERED: Adacel Vial IM ONE (10:16)
[2023-09-23 18:10] VITALS: BP 137/63; PULSE 103; RESP 20; TEMP 98.2
== END 2023-09-23 19:08 | disposition home or self-care (01) | DRG 807 ==
LOC: OBSVTOIN 22:22 → OB 22:22 → UNDOADMOB 22:22
PROVIDERS: ADMIT Family Medicine; ATTEND Family Medicine
PROC: 10E0XZZ Delivery of Products of Conception, External Approach (ICD-10-PCS; principal; 2023-09-22)
PROC: 0KQM0ZZ Repair Perineum Muscle, Open Approach (ICD-10-PCS; 2023-09-22)
DX: O70.1 Second degree perineal laceration during delivery (principal); Z37.0 Single live birth; Z3A.39 39 weeks gestation of pregnancy; Z20.828 Contact with and (suspected) exposure to other viral communicable diseases; F19.11 Other psychoactive substance abuse, in remission; F10.10 Alcohol abuse, uncomplicated
CPT/HCPCS: 36415; 80307; 81001; 82077; 84112; 85025; 86850; 86900; 86901; 87086; 90471; 90715; 94799; 99213; J0290; J2590; A9270-GY